=== PATIENT | female | born 1960 | race Caucasian/White ===

== ENCOUNTER 2016-05-16 06:23 | Emergency (ER) | payer MEDICARE, MEDICAID ==
[~2016-05-16] VITALS: Ht 157.5 cm; Wt 72.6 kg
[~2016-05-16 06:23] MED LIST: ALBUAER3 IN; ALPR0.5T PO; AMI25T PO; AMIO200T33 PO; BUDESONIDE NEB; CARI-277 PO; FURO40TA4 PO; GAB400C PO; LEVO-28 PO; LEVO75TA50 PO; MAGN400T5 PO; MET25T PO; NYS5LQ PO; OXYC10TA44 PO; POTA20TA53 PO; RAMI10CA38 PO; WARF5TAB PO
[2016-05-16] MEDS ORDERED: SODIUM BICARBONATE 8.4% INJ 50ML SYRINGE ONE (06:34)
[2016-05-16] MEDS ORDERED: SODIUM BICARBONATE 8.4% INJ 50ML SYRINGE IV ONE (11:28)
[2016-05-16] MEDS ORDERED: CALCIUM CHLOR(10%) 100MG/ML 10ML SYRINGE IV ONE (11:28)
[2016-05-16] MEDS ORDERED: EPINEPHrine HCL 1 MG/10 ML SYRG IV ONE (11:28)
== END 2016-05-16 11:52 | disposition expired ==
LOC: ER 06:27
DX: I46.9 Cardiac arrest, cause unspecified (principal); I11.0 Hypertensive heart disease with heart failure; I50.9 Heart failure, unspecified; J44.9 Chronic obstructive pulmonary disease, unspecified; I25.2 Old myocardial infarction; Z90.89 Acquired absence of other organs; Z90.710 Acquired absence of both cervix and uterus; Z95.0 Presence of cardiac pacemaker; Z87.891 Personal history of nicotine dependence; Z88.6 Allergy status to analgesic agent
CPT/HCPCS: 31500; 92950; 92960; 99285; J0171